=== PATIENT | male | born 2000 | race Caucasian/White ===

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

== ENCOUNTER 2019-07-26 09:24 | Inpatient (IN) | payer OTHER ==
--- NOTE | 2019-07-26 09:36 | ED ---
Psych HPI - General Source: patient, RN notes reviewed Mode of arrival: ambulatory Limitations: no limitations <Manuel Dalton - Last Filed: 07/26/19 12:51> <Gosia Vargas - Last Filed: 07/28/19 00:47> - General Stated Complaint: Mental Health Time Seen by Provider: 07/26/19 09:27 - History of Present Illness Initial Comments: 19-year-old male presents emergency Department with chief complaint of depression, bipolar disorder. Patient states that he was diagnosed earlier sure. Patient states she's been taken his medications but he states he's had steady progression of increased paranoia, depression and recent thoughts of hurting himself. He states today he felt that he would just swerve an icy road and crashed into a tree. Patient states that he knows he is not certain right he states that he needs help and is ready for help at this time. He does smoke one states is his medical marijuana license. (Manuel Dalton) - Related Data Home Medications Medication Instructions Recorded Confirmed Acetaminophen [Tylenol Extra 1,500 mg PO HS PRN 07/26/19 07/26/19 Strength] inFLIXimab [Remicade] 100 mg IVPB Q56D 07/26/19 07/26/19 lamoTRIgine [LaMICtal] 100 mg PO BID 07/26/19 07/26/19 Allergies Allergy/AdvReac Type Severity Reaction Status Date / Time NSAIDS (Non-Steroidal AdvReac Unknown Verified 07/26/19 15:07 Anti-Inflamma Review of Systems ROS Other: All systems not noted in ROS Statement are negative. <Manuel Dalton - Last Filed: 07/26/19 12:51> ROS Other: All systems not noted in ROS Statement are negative. <Gosia Vargas - Last Filed: 07/28/19 00:47> ROS Statement: Those systems with pertinent positive or pertinent negative responses have been documented in the HPI. Past Medical History Past Medical History: Asthma Additional Past Medical History / Comment(s): crohn's, IBS, History of Any Multi-Drug Resistant Organisms: None Reported Past Surgical History: No Surgical Hx Reported Past Anesthesia/Blood Transfusion Reactions: No Reported Reaction Past Psychological History: ADD/ADHD, Bipolar, Depression Smoking Status: Never smoker Past Alcohol Use History: Occasional Past Drug Use History: Marijuana <Manuel Dalton - Last Filed: 07/26/19 12:51> General Exam Limitations: no limitations General appearance: alert, in no apparent distress Head exam: Present: atraumatic, normocephalic, normal inspection Eye exam: Present: normal appearance, PERRL, EOMI. Absent: scleral icterus, conjunctival injection, periorbital swelling ENT exam: Present: normal exam, normal oropharynx, mucous membranes moist Neck exam: Present: normal inspection, full ROM. Absent: tenderness, meningismus, lymphadenopathy Respiratory exam: Present: normal lung sounds bilaterally. Absent: respiratory distress, wheezes, rales, rhonchi, stridor Cardiovascular Exam: Present: regular rate, normal rhythm, normal heart sounds. Absent: systolic murmur, diastolic murmur, rubs, gallop, clicks GI/Abdominal exam: Present: soft, normal bowel sounds. Absent: distended, tenderness, guarding, rebound, rigid Neurological exam: Present: alert, oriented X3 Skin exam: Present: warm, dry, intact, normal color. Absent: rash <Manuel Dalton - Last Filed: 07/26/19 12:51> Course Vital Signs 07/26/19 07/26/19 09:26 13:58 Temperature 98.2 F 97.9 F Pulse Rate 79 67 Respiratory 18 19 Rate Blood Pressure 144/88 134/85 O2 Sat by Pulse 98 97 Oximetry Medical Decision Making <ShaManuel Caicedo - Last Filed: 07/26/19 12:51> - Lab Data Result diagrams: 07/27/19 07:51 07/27/19 07:51 <Gosia Vargas - Last Filed: 07/28/19 00:47> - Medical Decision Making Patient evaluated by EPS patient will be admitted to psychiatric facility (Manuel Dalton) I was available for consultation in the emergency department. The history and physical exam were done by the midlevel provider. I was consulted for this patients care. I reviewed the case with the midlevel provider and based on their presentation of the patient, I agree with the assessment, medical decision making and plan of care as documented. Chart was dictated using [employer] dictation software. Attempts were made to correct any dictation errors however some typographical errors may persist. (Gosia Vargas) - Lab Data Lab Results 07/26/19 Range/Units 09:41 Urine Color Yellow Urine Appearance Clear (Clear) Urine pH 7.0 (5.0-8.0) Ur Specific Jackson 1.021 (1.001-1.035) Urine Protein Negative (Negative) Urine Glucose (UA) Negative (Negative) Urine Ketones Negative (Negative) Urine Blood Negative (Negative) Urine Nitrite Negative (Negative) Urine Bilirubin Negative (Negative) Urine Urobilinogen <2.0 (<2.0) mg/dL Ur Leukocyte Esterase Negative (Negative) Urine Opiates Screen Not Detected (NotDetected) Ur Oxycodone Screen Not Detected (NotDetected) Urine Methadone Screen Not Detected (NotDetected) Ur Propoxyphene Screen Not Detected (NotDetected) Ur Barbiturates Screen Not Detected (NotDetected) U Tricyclic Antidepress Not Detected (NotDetected) Ur Phencyclidine Scrn Not Detected (NotDetected) Ur Amphetamines Screen Not Detected (NotDetected) U Methamphetamines Scrn Not Detected (NotDetected) U Benzodiazepines Scrn Not Detected (NotDetected) Urine Cocaine Screen Not Detected (NotDetected) U Marijuana (THC) Screen Detected H (NotDetected) Disposition Time of Disposition: 12:00 <Manuel Dalton - Last Filed: 07/26/19 12:51> <Gosia Vargas - Last Filed: 07/28/19 00:47> Clinical Impression: Depression, Bipolar disorder Disposition: TRANSFER TO PSYCH HOSP/UNIT Condition: Stable
[2019-07-26 12:30] LABS: Appearance,Urine Clear (Clear); Bilirubin,Urine Negative (Negative); Blood,Urine Negative (Negative); Color,Urine Yellow; Glucose,Urine (UA) Negative (Negative); Ketones,Urine Negative (Negative); Leukocyte Esterase,Urine Negative (Negative); Nitrite,Urine Negative (Negative); Protein,Urine Negative (Negative); Specific Gravity,Urine 1.021 (1.001-1.035); Urobilinogen,Urine <2.0 mg/dL (<2.0)
[2019-07-26 12:42] LABS: Amphetamine Screen,Urine Not Detected (NotDetected); Barbiturate Screen,Urine Not Detected (NotDetected); Benzodiazepines Screen,Urine Not Detected (NotDetected); Cocaine Screen,Urine Not Detected (NotDetected); Methadone Screen, Urine Not Detected (NotDetected); Opiate Screen,Urine Not Detected (NotDetected); Oxycodone Screen, Urine Not Detected (NotDetected); Phencyclidine Screen,Urine Not Detected (NotDetected); Tricyclic Antidepressant,Urine Not Detected (NotDetected); Urn Cannabinoid Scrn Detected (NotDetected)
[2019-07-26] MEDS ORDERED: MAGNESIUM HYDROXIDE 2,400 MG/10 ML CUP PO PRN (14:28)
[2019-07-26] MEDS ORDERED: ZIPRASIDONE 20 MG VIAL IM PRN (14:28)
[2019-07-26] MEDS ORDERED: MAG HYDROX/AL HYDROX/SIMETH 30 ML CUP PO PRN (14:28)
[2019-07-26] MEDS: ACETAMINOPHEN TAB 500 MG TAB PO PRN (21:38)
[2019-07-26] MEDS: LORazepam 1 MG TAB PO PRN (21:38)
[2019-07-27 08:15] LABS: Basophils # (A) 0.1 k/uL (0-0.2); Basophils % (A) 1 %; Eosinophils # (A) 0.2 k/uL (0-0.7); Eosinophils % (A) 4 %; HCT 48.7 % (39.0-53.0); HGB 16.4 gm/dL (13.0-17.5); Lymphocytes # (A) 1.8 k/uL (1.0-4.8); Lymphocytes % (A) 36 %; MCHC 33.7 g/dL (31.0-37.0); MCV 89.1 fL (80.0-100.0); Monocytes # (A) 0.4 k/uL (0-1.0); Monocytes % (A) 8 %; Neutrophils # (A) 2.4 k/uL (1.3-7.7); Neutrophils % (A) 48 %; Platelet Count 254 k/uL (150-450); RBC 5.46 m/uL (4.30-5.90); RDW 12.1 % (11.5-15.5)
[2019-07-27 08:25] LABS: ALT 44 U/L (21-72); AST 28 U/L (17-59); African American GFR (CKD) >90 (>60 ml/min/1.73 sqM); Albumin 4.6 g/dL (3.5-5.0); Alkaline Phosphatase 79 U/L (38-126); Anion Gap 9 mmol/L; Blood Urea Nitrogen 14 mg/dL (9-20); Calcium 9.6 mg/dL (8.4-10.2); Carbon Dioxide 29 mmol/L (22-30); Chloride 105 mmol/L (98-107); Cholesterol 120 mg/dL (<200); Glucose 90 mg/dL (74-99); HDL Cholesterol 39 mg/dL (40-60); LDL Cholesterol,Calculated 63 mg/dL (0-99); Potassium 4.5 mmol/L (3.5-5.1); Sodium 143 mmol/L (137-145); Total Bilirubin 0.7 mg/dL (0.2-1.3); Total Protein 7.5 g/dL (6.3-8.2); Triglycerides 91 mg/dL (<150)
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
[2019-07-27 15:03] VITALS: BMI 35.8
[2019-07-27 17:16] LABS: Hemoglobin A1C 4.7 % (4.0-6.0)
[2019-07-27] MEDS: SERTRALINE 50 MG TAB PO SCH (20:49)
--- NOTE | 2019-07-27 21:07 | P.CONS ---
History of Present Illness - Reason for Consult Consult date: 07/27/19 Medical management Requesting physician: Shaji Mantilla - Chief Complaint Depressed - History of Present Illness Consultation: This is a pleasant 19-year-old patient of Dr. ibarra. Patient's chronic stable medical conditions include asthma, recreational marijuana use, and Crohn's disease. Patient is on IV Remicade. Averages a few bowel movements anywhere from 4-7 today. Patient's current job iin [employer]. Patient decided to come in as he was feeling low started to become more depressed and he thought he should come in before things get much worse. Appetite is okay. Patient also got actually which is a little bit cautious about. No abdominal pain. No fever no chills. Up and about otherwise. Review of systems: GEN.: None EYES: None HEENT: None NECK: None RESPIRATORY: None CARDIOVASCULAR: None GASTROINTESTINAL: [As above GENITOURINARY: None MUSCULOSKELETAL: None LYMPHATICS: None HEMATOLOGICAL: None PSYCHIATRY: [Depressed NEUROLOGICAL: None DERMATOLOGICAL: Acne on the chest and face Past medical history: Asthma, Crohn's disease, Social history Has does marijuana after recently. Alcohol occasionally when he goes out. Was with his mother and her boyfriend. Employed in an [employer] company Family history: Reviewed, noncontributory to presentation Physical examination: VITAL SIGNS: 98.2, 79, 18, 144/88, 98% GENERAL: BMI 35.8, sitting up in a chair comfortable. EYES: Pupils equal. Conjunctiva normal. HEENT: External appearance of nose and ears normal, oral cavity grossly normal. Facial acne NECK: JVD not raised; masses not palpable. HEART: First and second heart sounds are normal; no edema. LUNGS: Respiratory rate normal; clear to auscultation. ABDOMEN: Soft, nontender, liver spleen not palpable, no masses palpable. PSYCH: Alert and oriented x3; mood and affect slightly anxious NEUROLOGICAL: Cranial nerves grossly intact; no facial asymmetry, power and sensation grossly intact. LYMPHATICS: No lymph nodes palpable in the axilla and neck CHEST wall: Anterior chest wall acne INVESTIGATIONS, reviewed in the clinical context: White count 5 hemoglobin 16.4 platelets 254 potassium 4.5 crit 0.85 TSH 0.609 UA negative Urine drug screen positive for marijuana Assessment: -Acne in both the face and the trunk. -Obesity BMI 35.8 -Recreational marijuana use -Bipolar disorder, depressed Plan: Did discuss with the patient. He should follow with a double needle operator lockstitch upon discharge.: To avoid marijuana. Also discussed to exercise and cut back on his calories and lose weight. Follow-up with PCP upon discharge Thank you Dr. Mantilla Past Medical History Past Medical History: Asthma Additional Past Medical History / Comment(s): crohn's, IBS, History of Any Multi-Drug Resistant Organisms: None Reported Past Surgical History: No Surgical Hx Reported Additional Past Surgical History / Comment(s): Colonoscopy Past Anesthesia/Blood Transfusion Reactions: No Reported Reaction Past Psychological History: ADD/ADHD, Anxiety, Bipolar, Depression Smoking Status: Current every day smoker Past Alcohol Use History: Occasional Past Drug Use History: Marijuana Additional Drug Use History / Comment(s): Magic Mushrooms once 4 months ago and once last year Medications and Allergies Home Medications Medication Instructions Recorded Confirmed Type Acetaminophen [Tylenol Extra 1,500 mg PO HS PRN 07/26/19 07/26/19 History Strength] inFLIXimab [Remicade] 100 mg IVPB Q56D 07/26/19 07/26/19 History lamoTRIgine [LaMICtal] 100 mg PO BID 07/26/19 07/26/19 History Allergies Allergy/AdvReac Type Severity Reaction Status Date / Time NSAIDS (Non-Steroidal AdvReac Unknown Verified 07/26/19 15:07 Anti-Inflamma Physical Exam Vitals: Vital Signs Temp Pulse Pulse Resp BP BP Pulse Ox 07/27/19 06:14 97.9 F 68 16 117/58 07/26/19 15:20 97.4 F L 64 20 130/81 98 07/26/19 13:58 97.9 F 67 19 134/85 97 Results CBC & Chem 7: 07/27/19 07:51 07/27/19 07:51 Labs: Abnormal Lab Results - Last 24 Hours (Table) 07/26/19 07/27/19 Range/Units 09:41 07:51 HDL Cholesterol 39 L (40-60) mg/dL U Marijuana (THC) Screen Detected H (NotDetected)
[2019-07-27] MEDS: ACETAMINOPHEN TAB 500 MG TAB PO PRN (22:20)
[2019-07-28] MEDS: ONDANSETRON 4 MG TAB PO PRN (06:42)
--- NOTE | 2019-07-28 09:11 | P.PN ---
Progress Note - Text Interval history: The patient is found in the hallway he follows me to an interview room. He reports that his mood is great. He denies having any side effects from the Zoloft so far. He indicates he was able to sleep last night appetite is stable. He had a pleasant visit from his mother and girlfriend last evening. We discussed his diagnosis in detail he had several relevant questions. He indicates he is attending groups. He reported coping skills he hopes to employ upon discharge. Social work was able to contact the patient's employer to let them know that the patient was in the hospital. Mental status exam: The patient is alert he is pleasant cooperative easily directed in the session. He is dressed in his own clothing hygiene adequate grooming fair. Eye contact is appropriate speech is fluent spontaneous nonpressured. He is reporting no suicidal or homicidal ideation intent or plan. He identifies his mood is "great". Affect is congruent and appears euthymic. He is reporting no auditory or visual hallucinations or specific delusions. He demonstrates no tangential thinking loose associations or flight of ideas. He can be circumstantial at times. Insight and judgment improving. He demonstrates no verbal or physical aggressiveness. He remains oriented to person place and date. Plan: The patient will continue on the Zoloft we will restart the Lamictal 200 mg at bedtime. Social work will be asked to arrange a support meeting. We will discuss his progress during treatment team meeting. We discussed options for his outpatient psychiatric care and he is agreeable. We spent time discussing the need for him to abstain from marijuana and he is agreeable. Vital signs reviewed. He requires continued psychiatric evaluation and treatment. We will consider discharge in the next 1-2 days.
[2019-07-28] MEDS: SERTRALINE 50 MG TAB PO SCH (20:50)
[2019-07-28] MEDS: LORazepam 1 MG TAB PO PRN (20:51)
[2019-07-28] MEDS ORDERED: lamoTRIgine 100 MG TAB PO SCH (21:00)
[2019-07-29 06:37] VITALS: BP 134/76; PULSE 73; RESP 14; TEMP 97.4
[2019-07-29] MEDS: ONDANSETRON 4 MG TAB PO PRN (06:50)
--- NOTE | 2019-07-29 09:50 | P.DS ---
Providers Date of admission: 07/26/19 13:49 Expected date of discharge: 07/29/19 Attending physician: Shaji Mantilla Consults: 07/26/19 14:28 Consult Physician Routine Consulting Provider: Victor Manuel Garcia Consult Reason/Comments: H&P and medical Do you want consulting provider notified?: Yes Primary care physician: Rashi Steel - Discharge Diagnosis(es) (1) Bipolar II disorder, severe, depressed, with anxious distress Current Visit: Yes Status: Acute Priority: High (2) Cannabis use disorder, mild, abuse Current Visit: Yes Status: Acute Priority: Medium Hospital Course: Brief summary of admission note: This patient is a 19-year-old single male who was admitted to the mental health unit through the emergency room with acute suicidal ideation. The patient indicated he had thoughts of driving his vehicle into a stationary object. He had been experiencing intense anxiety culminating in panic attacks. He had been struggling with symptoms of major d epression. Sleep had been poor energy low he had not been attending to his activities of daily living as often. For full details please refer to the psychiatric evaluation dated 07/27/2019. Summary of hospital course: The patient was admitted to the mental health unit voluntarily. We reviewed his presenting symptoms and treatment options. We decided to continue the Lamictal at 200 mg at bedtime we initiated Zoloft 50 mg at bedtime for depressive and anxiety symptoms. He felt the Lamictal was beneficial in terms of a mood stabilizer and it has been controlling episodes of hypomania. He was seen by internal medicine for routine history and physical exam. Social work met with the patient to complete a psychosocial assessment for discharge planning purposes. He demonstrated progressive improvement of symptoms while here. He was able to tolerate his medication. He attended groups and was pleasant and cooperative throughout the stay. The patient's mother came up for a support meeting yesterday he notes were reviewed from social work. The meeting was noted to be productive and the patient appeared to be at baseline function. We discussed abstaining from marijuana and the pat ient's willing to do so at least for a brief period. Mental status exam: The patient is alert male appearing his stated age she is dressed in his own clothing. Hygiene and grooming are good. Speech is fluent spontaneous nonpressured. He reports his mood is great. Affect is euthymic and congruent to reported mood. He denies having any suicidal ideation intent or plan he denies having any homicidal ideation intent or plan. He reports no hopelessness thinking. In fact he describes several future oriented thoughts. He is reporting no auditory or visual hallucinations or any specific delusions. There is no observed evidence of psychosis. He demonstrates no tangential thinking loose associations or flight of ideas. He is not hypomanic or manic at this time. Insight and judgment grossly intact. He remains oriented to person place and date. Impressions 1. Bipolar 2 disorder most recent depressed severe without psychosis, cannabis use disorder 2. Crohn's disease Plan: The patient will be discharged mental health unit today to return home residing with his mother. He will continue on Lamictal 200 mg at bedtime and Zoloft 50 mg at bedtime. He will continue working with his established therapist and he will be set up to follow up with a psychiatrist in [facility]. He is encouraged to abstain from use of marijuana as it may be exacerbating some of his psychiatric and physical symptoms. He does not feel that he needs inpatient chemical dependency treatment to abstain from marijuana. There is no imminent safety risk is appropriate for transition to outpatient care. He is instructed to return to the hospital with any acute safety concerns. Patient Condition at Discharge: Stable Plan - Discharge Summary Discharge Rx Participant: No New Discharge Prescriptions: New lamoTRIgine [LaMICtal] 200 mg PO HS #30 tab Sertraline [Zoloft] 50 mg PO HS #30 tab Continue inFLIXimab [Remicade] 100 mg IVPB Q56D Discontinued lamoTRIgine [LaMICtal] 100 mg PO BID Acetaminophen [Tylenol Extra Strength] 1,500 mg PO HS PRN PRN Reason: Pain Discharge Medication List inFLIXimab [Remicade] 100 mg IVPB Q56D 07/26/19 [History] Sertraline [Zoloft] 50 mg PO HS #30 tab 07/29/19 [Rx] lamoTRIgine [LaMICtal] 200 mg PO HS #30 tab 07/29/19 [Rx] Follow up Appointment(s)/Referral(s): Sara Ray [Other] - 08/02/19 11:00 am (Sara Ray) Rashi Steel MD [Primary Care Provider] - 1-2 days
== END 2019-07-29 13:52 | disposition home or self-care (01) | DRG 885 ==
LOC: EC 09:24 → 3MHU 13:49
PROVIDERS: ADMIT Psychiatry & Neurology Psychiatry; ATTEND Psychiatry & Neurology Psychiatry
DX: F31.81 Bipolar II disorder (principal); R45.851 Suicidal ideations; K50.90 Crohn's disease, unspecified, without complications; F12.10 Cannabis abuse, uncomplicated; F90.9 Attention-deficit hyperactivity disorder, unspecified type; F41.0 Panic disorder [episodic paroxysmal anxiety]; F17.290 Nicotine dependence, other tobacco product, uncomplicated; J45.909 Unspecified asthma, uncomplicated; K58.9 Irritable bowel syndrome, unspecified; E66.9 Obesity, unspecified; Z68.35 Body mass index [BMI] 35.0-35.9, adult; Z79.899 Other long term (current) drug therapy; Z88.6 Allergy status to analgesic agent; Z81.8 Family history of other mental and behavioral disorders
CPT/HCPCS: 80053; 80061; 80306; 81003; 83036; 84443; 85025; 99285

== ENCOUNTER 2020-06-08 13:20 | Inpatient (IN) | payer OTHER ==
[2020-06-08] MEDS ORDERED: SODIUM CHLORIDE 0.9% 500 ML 500 ML IV STA (13:26)
[2020-06-08] MEDS ORDERED: LORazepam 2 MG/ML INJ IM STA (13:26)
[2020-06-08] MEDS ORDERED: LORazepam 2 MG/ML INJ IV STA (13:27)
--- NOTE | 2020-06-08 13:41 | ED ---
Psych HPI - General Chief Complaint: Psychiatric Symptoms Stated Complaint: Mental Health Time Seen by Provider: 06/08/20 13:24 Source: family, police, EMS, RN notes reviewed, old records reviewed Mode of arrival: EMS Limitations: no limitations - History of Present Illness Initial Comments: This is a 19-year-old male poor story refusing question answering patient's brought in from early behavior agitation, did run from police, patient needs to be restrained upon arrival in the hospital MD Complaint: altered mental status, other (Aggressive, acting appropriate) -: hour(s) Associated Psychiatric Symptoms: racing thoughts Quality: constant Improves With: none Worsens With: none Associated Symptoms: denies other symptoms Treatments Prior to Arrival: placed on mental health hold - Related Data Home Medications Medication Instructions Recorded Confirmed inFLIXimab [Remicade] 100 mg IVPB Q56D 07/26/19 06/08/20 Desloratadine 5 mg PO DAILY 06/08/20 06/08/20 Dextroamphetamine/Amphetamine 20 mg PO DAILY 06/08/20 06/08/20 [Adderall Xr] Sertraline [Zoloft] 50 mg PO DAILY 06/08/20 06/08/20 Previous Rx's Medication Instructions Recorded lamoTRIgine [LaMICtal] 200 mg PO HS #30 tab 07/29/19 Allergies Allergy/AdvReac Type Severity Reaction Status Date / Time NSAIDS (Non-Steroidal AdvReac Rash/Hives Verified 06/08/20 16:03 Anti-Inflamma Review of Systems ROS Statement: Those systems with pertinent positive or pertinent negative responses have been documented in the HPI. ROS Other: All systems not noted in ROS Statement are negative. Past Medical History Past Medical History: Asthma Additional Past Medical History / Comment(s): crohn's, IBS, History of Any Multi-Drug Resistant Organisms: None Reported Past Surgical History: No Surgical Hx Reported Additional Past Surgical History / Comment(s): Colonoscopy Past Anesthesia/Blood Transfusion Reactions: No Reported Reaction Past Psychological History: ADD/ADHD, Anxiety, Bipolar, Depression Smoking Status: Vaper Past Alcohol Use History: Occasional Past Drug Use History: Marijuana General Exam Limitations: altered mental status General appearance: alert, in no apparent distress Head exam: Present: atraumatic, normocephalic, normal inspection Eye exam: Present: normal appearance, PERRL, EOMI. Absent: scleral icterus, conjunctival injection, periorbital swelling ENT exam: Present: normal exam, mucous membranes moist Neck exam: Present: normal inspection. Absent: tenderness, meningismus, lymphadenopathy Respiratory exam: Present: normal lung sounds bilaterally. Absent: respiratory distress, wheezes, rales, rhonchi, stridor Cardiovascular Exam: Present: regular rate, normal rhythm, normal heart sounds. Absent: systolic murmur, diastolic murmur, rubs, gallop, clicks GI/Abdominal exam: Present: soft, normal bowel sounds. Absent: distended, tenderness, guarding, rebound, rigid Extremities exam: Present: normal inspection, full ROM, normal capillary refill. Absent: tenderness, pedal edema, joint swelling, calf tenderness Back exam: Present: normal inspection Neurological exam: Present: alert, oriented X3, CN II-XII intact Psychiatric exam: Present: normal affect, normal mood Skin exam: Present: warm, dry, intact, normal color. Absent: rash Course Vital Signs 06/08/20 06/08/20 13:36 18:02 Temperature 98.4 F 98.2 F Pulse Rate 86 106 H Respiratory 16 Rate Blood Pressure 156/90 156/93 O2 Sat by Pulse 98 98 Oximetry - Reevaluation(s) Reevaluation #1: 06/08/20 13:44 Medical records reviewed Reevaluation #2: 06/08/20 18:09 Patient given both chemical and mechanical sedation here in the ER Procedures - Restraint - Face to Face Restraint Occurrence 1 Patient's Immediate Situation: Endangers self safety, Endangers others' safety, Endangers staff safety, Violent behavior Patient's Reaction to the Intervention: Angry, Hostile, Belligerent, Anxious Patient's Medical & Behavioral Condition: Awake, Anxious, Agitated, Manic Need to Continue or Terminate Restraint or Seclusion: Continue Face to Face Eval of Restraint Date: 06/08/20 Face to Face Eval of Restraint Time: 13:25 Medical Decision Making - Medical Decision Making 19 male seen eval by psychiatry, patient having delusions and episcopal thoughts occupying his thought process. Patient be admitted for psychiatric evaluation and treatment - Lab Data Result diagrams: 06/08/20 13:49 06/08/20 13:49 Lab Results 06/08/20 06/08/20 Range/Units 13:49 13:49 WBC 8.5 (4.0-11.0) k/uL RBC 5.35 (4.30-5.90) m/uL Hgb 16.0 (13.0-17.5) gm/dL Hct 45.9 (39.0-53.0) % MCV 85.9 (80.0-100.0) fL MCH 29.8 (25.0-35.0) pg MCHC 34.7 (31.0-37.0) g/dL RDW 11.8 (11.5-15.5) % Plt Count 294 (150-450) k/uL Neutrophils % 67 % Lymphocytes % 21 % Monocytes % 9 % Eosinophils % 0 % Basophils % 1 % Neutrophils # 5.7 (1.3-7.7) k/uL Lymphocytes # 1.8 (1.0-4.8) k/uL Monocytes # 0.7 (0-1.0) k/uL Eosinophils # 0.0 (0-0.7) k/uL Basophils # 0.1 (0-0.2) k/uL Sodium 136 L (137-145) mmol/L Potassium 3.9 (3.5-5.1) mmol/L Chloride 103 (98-107) mmol/L Carbon Dioxide 21 L (22-30) mmol/L Anion Gap 12 mmol/L BUN 14 (9-20) mg/dL Creatinine 0.86 (0.66-1.25) mg/dL Est GFR (CKD-EPI)AfAm >90 (>60 ml/min/1.73 sqM) Est GFR (CKD-EPI)NonAf >90 (>60 ml/min/1.73 sqM) Glucose 113 H (74-99) mg/dL Calcium 9.8 (8.4-10.2) mg/dL Total Bilirubin 0.9 (0.2-1.3) mg/dL AST 27 (17-59) U/L ALT 30 (4-49) U/L Alkaline Phosphatase 81 (38-126) U/L Creatine Kinase 222 H (55-170) U/L Total Protein 7.7 (6.3-8.2) g/dL Albumin 4.8 (3.5-5.0) g/dL Salicylates <1.0 mg/dL Acetaminophen <10.0 ug/mL Serum Alcohol <10 mg/dL Disposition Clinical Impression: Acute psychosis, Bipolar disorder, Depression, Bipolar II disorder, severe, depressed, with anxious distress, Cannabis use disorder, mild, abuse Disposition: TRANSFER TO PSYCH HOSP/UNIT Condition: Fair Is patient prescribed a controlled substance at d/c from ED?: No
[2020-06-08 14:14] LABS: Basophils # (A) 0.1 k/uL (0-0.2); Basophils % (A) 1 %; Eosinophils % (A) 0 %; HCT 45.9 % (39.0-53.0); Lymphocytes # (A) 1.8 k/uL (1.0-4.8); Lymphocytes % (A) 21 %; MCH 29.8 pg (25.0-35.0); MCHC 34.7 g/dL (31.0-37.0); MCV 85.9 fL (80.0-100.0); Mean Platelet Volume 6.3; Monocytes # (A) 0.7 k/uL (0-1.0); Monocytes % (A) 9 %; Neutrophils # (A) 5.7 k/uL (1.3-7.7); Neutrophils % (A) 67 %; Platelet Count 294 k/uL (150-450); RBC 5.35 m/uL (4.30-5.90); RDW 11.8 % (11.5-15.5); WBC 8.5 k/uL (4.0-11.0)
[2020-06-08 14:22] LABS: ALT 30 U/L (4-49); AST 27 U/L (17-59); Acetaminophen <10.0 ug/mL; African American GFR (CKD) >90 (>60 ml/min/1.73 sqM); Albumin 4.8 g/dL (3.5-5.0); Alcohol <10 mg/dL; Alkaline Phosphatase 81 U/L (38-126); Anion Gap 12 mmol/L; Blood Urea Nitrogen 14 mg/dL (9-20); Calcium 9.8 mg/dL (8.4-10.2); Carbon Dioxide 21 mmol/L (22-30); Chloride 103 mmol/L (98-107); Creatine Kinase 222 U/L (55-170); Glucose 113 mg/dL (74-99); Non-African American GFR(CKD) >90 (>60 ml/min/1.73 sqM); Potassium 3.9 mmol/L (3.5-5.1); Salicylate <1.0 mg/dL; Sodium 136 mmol/L (137-145); Total Bilirubin 0.9 mg/dL (0.2-1.3); Total Protein 7.7 g/dL (6.3-8.2)
[2020-06-08] MEDS ORDERED: ACETAMINOPHEN TAB 325 MG TAB PO PRN (17:53)
[2020-06-08] MEDS ORDERED: MAG HYDROX/AL HYDROX/SIMETH 30 ML CUP PO PRN (17:53)
[2020-06-08] MEDS ORDERED: MAGNESIUM HYDROXIDE 2,400 MG/10 ML CUP PO PRN (17:53)
[2020-06-08] MEDS ORDERED: LORazepam 2 MG/ML INJ IM PRN (17:59)
[2020-06-08] MEDS: ZIPRASIDONE 20 MG VIAL IM PRN (18:57)
[2020-06-08] MEDS: lamoTRIgine 100 MG TAB PO SCH (22:19)
[2020-06-09 09:15] LABS: ALT 34 U/L (4-49); AST 27 U/L (17-59); African American GFR (CKD) >90 (>60 ml/min/1.73 sqM); Albumin 4.8 g/dL (3.5-5.0); Alkaline Phosphatase 73 U/L (38-126); Anion Gap 10 mmol/L; Blood Urea Nitrogen 14 mg/dL (9-20); Calcium 9.9 mg/dL (8.4-10.2); Carbon Dioxide 28 mmol/L (22-30); Chloride 105 mmol/L (98-107); Cholesterol 172 mg/dL (<200); Glucose 87 mg/dL (74-99); HDL Cholesterol 49 mg/dL (40-60); LDL Cholesterol,Calculated 109 mg/dL (0-99); Non-African American GFR(CKD) >90 (>60 ml/min/1.73 sqM); Potassium 4.6 mmol/L (3.5-5.1); Sodium 143 mmol/L (137-145); Total Bilirubin 1.2 mg/dL (0.2-1.3); Total Protein 7.7 g/dL (6.3-8.2); Triglycerides 69 mg/dL (<150)
[2020-06-09 09:37] LABS: Basophils # (A) 0.1 k/uL (0-0.2); Basophils % (A) 1 %; Eosinophils # (A) 0.1 k/uL (0-0.7); Eosinophils % (A) 2 %; HCT 49.7 % (39.0-53.0); HGB 17.3 gm/dL (13.0-17.5); Lymphocytes # (A) 2.6 k/uL (1.0-4.8); Lymphocytes % (A) 40 %; MCH 30.5 pg (25.0-35.0); MCHC 34.8 g/dL (31.0-37.0); MCV 87.7 fL (80.0-100.0); Mean Platelet Volume 6.6; Monocytes # (A) 0.6 k/uL (0-1.0); Monocytes % (A) 9 %; Neutrophils # (A) 3.1 k/uL (1.3-7.7); Neutrophils % (A) 47 %; Platelet Count 251 k/uL (150-450); RBC 5.66 m/uL (4.30-5.90); RDW 12.4 % (11.5-15.5); WBC 6.7 k/uL (4.0-11.0)
[2020-06-09] MEDS: SERTRALINE 50 MG TAB PO SCH (09:48)
[2020-06-09] MEDS ORDERED: risperiDONE 0.5 MG TAB PO STA (10:01)
[2020-06-09] MEDS ORDERED: ZIPRASIDONE 20 MG VIAL IM ONE (12:03)
[2020-06-09] MEDS ORDERED: WATER FOR INJECTION, STERILE 10 ML IV ONE (12:03)
[2020-06-09] MEDS: ZIPRASIDONE 20 MG VIAL IM PRN ×2 (12:05→21:32)
[2020-06-09] MEDS: LORazepam 1 MG TAB PO PRN (12:05)
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
[2020-06-09 19:09] LABS: Hemoglobin A1C 4.9 % (4.0-6.0)
[2020-06-09] MEDS: lamoTRIgine 100 MG TAB PO SCH (19:45)
[2020-06-09] MEDS ORDERED: risperiDONE 1 MG TAB PO SCH (21:00)
--- NOTE | 2020-06-10 03:44 | P.PN ---
Progress Note - Text Progress Note Date: 06/10/20 Attempted to the patient in the mental health unit. The patient was sedated after having received Geodon. Will attempt again tomorrow.
[2020-06-10] MEDS: LORazepam 1 MG TAB PO PRN ×2 (06:22→13:06)
[2020-06-10] MEDS: SERTRALINE 50 MG TAB PO SCH (08:20)
--- NOTE | 2020-06-10 10:16 | P.PN ---
Subjective Progress Note Date: 06/10/20 Principal diagnosis: Diagnoses bipolar 1 manic episode Subjective: The patient says that he was psychotic last night and believes that he had Covid and then what was the point of living if you have Covid. After that he said he was able to sleep somewhat denies any restlessness from the risperidone. Objective: The patient is almost too positive which is typical of the euphoria of ross. Going on and on how this is fine in his hospital and when he becomes a psychiatrist himself he will refer people here. Vital signs temperature 97.9 heart rate is 132 respiration 18 blood pressure 163/98 (most of this is probably from the agitation of his ross) Labs: Hematology was normal general chemistry is normal except for a low TSH suggesting he might be slightly hyperthyroid the patient also Lamictal level run which interestingly was 2.1 even though he is on 200mg.So is on the low end of therapeutic for seizure. Course he isn't depressed right he says going into depression he might seriously consider increasing the Lamictal. He swears that he has been taking it on a daily basis and I reviewed with him the rules in terms of forgetfulness and he assured me that he has been taking it regularly. Groups the patient went to 1 group yesterday and [facility] he required verbal prompts and redirection to participate in group and was inconsistently redirectable, that was that 11th clock yesterday. Staff report: Patient mind is racing he doesn't seem to listen when you tell what the process of getting better and discharge issues. He was noted to be tangential circling on episcopalian and on and rebirth. With me he circles on how he will become a psychiatrist and help everybody because he already has the skills. Objective: Good eye contact high-energy quick response times pressured speech and mild flight of ideas and grandiosity Assessment still quite manic tolerated risperidone properly all increase it to 3 mg tonight Objective - Vital Signs Vital signs: Vital Signs Temp 97.9 F 06/10/20 06:10 Pulse 132 H 06/10/20 06:10 Resp 18 06/10/20 06:10 BP 163/98 06/10/20 06:10 Pulse Ox 98 06/08/20 18:46 - Labs CBC & Chem 7: 06/09/20 08:23 06/09/20 08:23
[2020-06-10] MEDS ORDERED: ZIPRASIDONE 20 MG VIAL IM ONE (11:14)
[2020-06-10] MEDS ORDERED: WATER FOR INJECTION, STERILE 10 ML IV ONE (11:14)
[2020-06-10] MEDS: ZIPRASIDONE 20 MG VIAL IM PRN (11:25)
[2020-06-10] MEDS: diphenhydrAMINE 50 MG CAP PO PRN (18:38)
[2020-06-10] MEDS ORDERED: risperiDONE 1 MG TAB PO SCH (21:00)
[2020-06-11] MEDS: LORazepam 1 MG TAB PO PRN ×3 (01:28→16:18)
[2020-06-11] MEDS: diphenhydrAMINE 50 MG CAP PO PRN ×3 (01:28→16:18)
[2020-06-11] MEDS ORDERED: ALBUTEROL NEBULIZED 2.5 MG/3 ML INHALATION PRN (04:30)
--- NOTE | 2020-06-11 04:30 | P.CONS ---
History of Present Illness - Reason for Consult Consult date: 06/11/20 - History of Present Illness Patient is a 19-year-old male with a PMH of Crohn's disease and mild intermittent asthma who presented to the emergency room under police custody for psychosis. The patient was admitted to the mental health unit where he was seen and evaluated. The patient reports that he developed a rash in the area around his chain. He denied any additional complaints. He reports compliance with his Remicade at home and reports seldom using the rescue inhaler for his asthma. He denied chest pain, shortness of fever, chills, cough. Denied abdominal pain, nausea, vomiting, dizziness, or diarrhea. Review of Systems Pertinent positives and negatives as discussed in HPI, a complete review of systems was performed and all other systems are negative. Past Medical History Past Medical History: Asthma Additional Past Medical History / Comment(s): crohn's, IBS, History of Any Multi-Drug Resistant Organisms: None Reported Past Surgical History: No Surgical Hx Reported Additional Past Surgical History / Comment(s): Colonoscopy Past Anesthesia/Blood Transfusion Reactions: No Reported Reaction Past Psychological History: ADD/ADHD, Anxiety, Bipolar, Depression Smoking Status: Vaper Past Alcohol Use History: Occasional Past Drug Use History: Marijuana Medications and Allergies Home Medications Medication Instructions Recorded Confirmed Type inFLIXimab [Remicade] 100 mg IVPB Q56D 07/26/19 06/08/20 History lamoTRIgine [LaMICtal] 200 mg PO HS #30 tab 07/29/19 06/08/20 Rx Desloratadine 5 mg PO DAILY 06/08/20 06/08/20 History Dextroamphetamine/Amphetamine 20 mg PO DAILY 06/08/20 06/08/20 History [Adderall Xr] Sertraline [Zoloft] 50 mg PO DAILY 06/08/20 06/08/20 History Allergies Allergy/AdvReac Type Severity Reaction Status Date / Time NSAIDS (Non-Steroidal AdvReac Rash/Hives Verified 06/08/20 16:03 Anti-Inflamma Physical Exam Vitals: Vital Signs Temp Pulse Resp BP Pulse Ox 06/10/20 18:29 98.9 F 125 H 18 134/98 95 06/10/20 06:10 97.9 F 132 H 18 163/98 Intake and Output 06/10/20 06/10/20 06/11/20 14:59 22:59 06:59 Other: Weight 105.3 kg General: Disheveled male, non toxic, no distress, appears at stated age, normal weight Derm: Raised purpuric rash overlying the neck and front chest, warm, dry Head: atraumatic, normocephalic, symmetric Eyes: EOMI, no lid lag, anicteric sclera, pupils equal round reactive to light ENT: Nose and ears atraumatic, no thrush, no pharyngeal erythema Neck: No thyromegaly, no cervical lymphadenopathy, trachea midline, supple Mouth: no lip lesion, mucus membranes moist Cardiovascular: S1S2 reg, no murmur, positive posterior tibial pulse bilateral, no edema, capillary refill less than 2 seconds Lungs: CTA bilateral, no rhonchi, no rales , no accessory muscle use Abdominal: soft, nontender to palpation, no guarding, no appreciable organom egaly, normal bowel sounds Ext: no gross muscle atrophy, muscle strength 5 out of 5 in all 4 extremities grossly, no contractures, Neuro: CN II-XI grossly intact, light touch intact all 4 extremities, finger to nose within normal limits, Psych: Alert, oriented Results CBC & Chem 7: 06/09/20 08:23 06/09/20 08:23 Assessment and Plan Plan: Mild intermittent asthma -Albuterol when necessary Crohn's disease -Patient receives Remicade as an outpatient every 2 months Low TSH -Obtain T3 and T4 levels Psychosis -As per psychiatry Thank you for allowing us to participate in the care of this patient. We will follow peripherally. Do not hesitate to contact us with questions. Someone can be reached from the [facility] hospitalist group at all hours of the day at [phone].
[2020-06-11] MEDS ORDERED: ALBUTEROL INHALER 60 PUFF/8 GM INHALER (MHU) INHALATION PRN (04:33)
--- NOTE | 2020-06-11 10:12 | P.PN ---
Progress Note - Text Progress Note Date: 06/11/20 I reviewed medical records ,did interview patient and case was discussed in treatment team SLEEP: 4 hours ,trouble falling asleep ,had 1 mg Ativan PRN Did review medical consult:per his note((Assessment and Plan Plan: Mild intermittent asthma -Albuterol when necessary Crohn's disease -Patient receives Remicade as an outpatient every 2 months Low TSH -Obtain T3 and T4 levels)) Interval history:patient was dressed in street clothing was walking in grider and agreed to follow me to office ,disheveled ,stated that he does need Adderrall for his ADD "I am studying Cognitive Neuroscience",grandiose and synagogue delusion ,stated that he has "Genious mind ,I am planning to go to [employer] after community college",compliant with oral medications and denies any side-effect Mental status exam: Patient was wearing his own cloth ,hygiene and grooming are poor ,unkept disheveled ,denies any hallucination,grandiose and synagogue delusion ,hyperverbal ,increased productivity ,loose of association, alert to person and place ,denies any suicidal or homicidal ideation ,very concrete in his thinking insight and judgment are improving ASSESSMENT :Bipolar disorder ,manic with psychotic features PLAN: Patient continues to meet criteria for inpatient psychiatric admission for symptom stabilization and safety ,change Risperdal to Invega .PRN Ativan and Geodon for agitation,waiting for probate court to start long acting injection , ,encourage participation in group,SW on board for post-discharge plan
[2020-06-11 10:13] LABS: T4, Free (Free Thyroxine) 1.87 ng/dL (0.78-2.19)
[2020-06-11] MEDS ORDERED: PALIPERIDONE 6 MG TAB.ER.24 PO SCH (21:00)
[2020-06-12] MEDS: diphenhydrAMINE 50 MG CAP PO PRN ×2 (09:42→20:31)
[2020-06-12] MEDS: LORazepam 1 MG TAB PO PRN (09:42)
--- NOTE | 2020-06-12 10:05 | P.PN ---
Progress Note - Text Progress Note Date: 06/12/20 I reviewed medical records ,did interview patient and case was discussed in treatment team SLEEP: 4 hours and was up and had difficulty falling asleep ,did require PRN Benadryl and Ativan 1m He asked for PRN this morning Ativan and Benadryl TODAY VITALS:Temp:97.9,P:115,R:16,BP:145/76 Interval history:patient was dressed in street clothing and has bedsheet wrapped around,stated "Why I am here ,How I got here ",stated that he used "More than usual amount of Mushroom "prior to his arrival to hospital ,he started using Mushroom in 2018 "I was clean for 6 months then I started back",hyperverbal ,when I asked about other addiction he replied "I HAVE NICOTINE AND WEED MY NICOTINE IS MY GAS AND WEEDS IS MY BRAKE",patient is grandiose ,endorses racing thoughts and "I AM HYPER I WANT TO SLOW DOWN",reports trouble staying asleep and having difficulty to concentrate Mental status exam: Patient was wearing his own cloth ,hygiene and grooming are poor ,unkept disheveled ,denies any hallucination,grandiose and scientology delusion ,hyperverbal ,increased productivity ,loose of association, alert to person and place ,denies any suicidal or homicidal ideation ,very concrete in his thinking insight and judgment are improving ASSESSMENT :Bipolar disorder ,manic with psychotic features PLAN: Patient continues to meet criteria for inpatient psychiatric admission for symptom stabilization and safety ,Increase Invega to 9 mg ,add Lamictal .PRN Ativan and Geodon for agitation,waiting for probate court to start long acting injection , ,encourage participation in group,SW on board for post- discharge plan
[2020-06-12] MEDS: PALIPERIDONE 3 MG TAB.ER.24 PO SCH (20:31)
[2020-06-13] MEDS: LORazepam 1 MG TAB PO PRN ×2 (01:51→08:30)
[2020-06-13] MEDS: diphenhydrAMINE 50 MG CAP PO PRN (03:02)
[2020-06-13] MEDS: LORATADINE 10 MG TAB PO SCH (08:30)
[2020-06-13] MEDS ORDERED: lamoTRIgine 25 MG TAB PO SCH (09:00)
[2020-06-13] MEDS ORDERED: hydrOXYzine HCL 50 MG/ML 1 ML VIAL IM STA (09:19)
[2020-06-13] MEDS ORDERED: hydrOXYzine pamoate 25 MG CAP PO PRN (09:30)
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
[2020-06-13] MEDS: PALIPERIDONE 3 MG TAB.ER.24 PO SCH (20:37)
[2020-06-13] MEDS: BENZTROPINE MESYLATE 0.5 MG TAB PO SCH (20:38)
[2020-06-13] MEDS: OXcarbazepine 150 MG TAB PO SCH (20:38)
[2020-06-14] MEDS: LORATADINE 10 MG TAB PO SCH (08:24)
[2020-06-14] MEDS: OXcarbazepine 150 MG TAB PO SCH ×2 (08:24→20:46)
[2020-06-14] MEDS: BENZTROPINE MESYLATE 0.5 MG TAB PO SCH ×2 (08:24→20:46)
[2020-06-14] MEDS ORDERED: PALIPERIDONE IM 234 MG/1.5 ML SYG IM STA (09:11)
--- NOTE | 2020-06-14 09:11 | P.PN ---
Progress Note - Text Progress Note Date: 06/14/20 I reviewed medical records ,did interview patient and case was discussed in treatment team SLEEP: 5 hours Participating in groups,no agitation or aggressive behavior Had PRN Vistaril this morning and also last night TODAY VITALS: P:113,R:14,BP:184/87 SW NOTE on 06/13((Attended deferral hearing with pt. pt deferred. He presented with an understanding of the consequences of non compliance. Pt states "I love my therapist and psychiatrist, I have no problem at all continuing to see them." Pt also states he has no issues with taking medications as prescribed. Will discuss case further with tx team at morning meeting)) Interval history:patient was dressed in street clothing ,was laying in bed and agreed to follow me to office ,he stated that he has been having hard time to calm down because"My mind is racing ",he talked about his short term goals that are not realistic "Getting 4.0 and going to [employer] to be psychiatrist " Mental status exam: Patient was wearing his own cloth ,hygiene and grooming are poor ,unkept disheveled ,denies any hallucination,no confucianist delusion , ,hyperverbal ,increased productivity ,loose of association,less restless today and was able to sit calmly, alert to person and place ,denies any suicidal or homicidal ideation ,very concrete in his thinking insight and judgment are improving ASSESSMENT :Bipolar disorder ,manic with psychotic features PLAN: Patient continues to meet criteria for inpatient psychiatric admission for symptom stabilization and safety ,d/c oral Invega ,start Invega IM 234 mg today ,continue Trileptal ,cogentin and PRN Vistaril,SW on board for post plan discharge
[2020-06-15] MEDS ORDERED: hydrOXYzine pamoate 25 MG CAP PO PRN (07:50)
[2020-06-15] MEDS: LORATADINE 10 MG TAB PO SCH (08:25)
[2020-06-15] MEDS: BENZTROPINE MESYLATE 0.5 MG TAB PO SCH (08:25)
[2020-06-15] MEDS ORDERED: OXcarbazepine 300 MG TAB PO SCH (09:00)
[2020-06-15 11:36] VITALS: BP 126/75; PULSE 105; RESP 16; TEMP 98.1
--- NOTE | 2020-06-15 20:43 | DS ---
DISCHARGE SUMMARY DATE OF ADMISSION: 06/08/2020 DATE OF DISCHARGE: 06/15/2020 SENIOR DATA WAREHOUSE DEVELOPER: Dr. Blake Rangel for history and physical and medical management. DISCHARGE DIAGNOSES: 1. Bipolar disorder, manic with psychotic features. 2. Substance use disorder, Adderall, mushrooms, cannabis and nicotine. HISTORY AND PHYSICAL EXAMINATION: The patient is a 19-year-old single male who was admitted on an involuntary basis. The patient was very agitated and he did need to be restrained upon arrival at the hospital. He stated that he was supposed to be on Zoloft 50 mg in the morning, Adderall 20 mg in the morning for his ADHD, and Lamictal 200 mg daily. The patient was very shinto, preoccupied, with a lot of grandeur delusions, and he was hyperverbal. He stated that he has been not sleeping for 4 or 5 days, and he did admit that he used a lot of mushrooms prior to his admission here. PAST PSYCHIATRIC HISTORY: He had at least 3 previous psych hospitalizations. Most of them were for severe depression or for mood swings. According to him, he was diagnosed with ADHD and he has been on and off [employer] stimulants. SUBSTANCE ABUSE HISTORY: As I mentioned before, the patient has been using mushrooms for almost 6 to 8 months. He stated that he never misused the Adderall prescribed by his primary care physician for ADHD, but he has been smoking marijuana on a daily basis. However, his urine drug screen when it came back to the ER was negative for Adderall and marijuana. However, we do not test for mushrooms. For social history, please refer to initial evaluation dictated by Dr. Fang. HOSPITAL COURSE: The patient was admitted on an involuntary basis. I did start him on Invega for his shinto and grandiose delusions. He was very hyper. He did need a couple of IM p.r.n. Ativan 2 mg. I started him on Invega 6 mg and gradually titrated it to 9 mg. As he did sign the deferral, I switched it to Invega Sustenna 234 mg. He did receive the injection on 06/14/2020, and another injection 156 is due on 06/20/2020. The patient did agree to try Trileptal as a mood stabilizer, as he was complaining of racing thoughts, being easily distracted and being very restless. We did titrate the Trileptal to 300 mg twice a day. The patient was able to tolerate medication without side effects. However, he was complaining that he has restless feelings at night, so Cogentin was added. I did discontinue the Ativan to avoid any cross addiction, and I started him on Vistaril 50 mg every 6-8 hours p.r.n. for anxiety. I did discuss the plan with the patient and he was counseled to avoid any recreational drugs. I did explain to him how it is affecting his mental status and he did verbalize understanding. At the time of admission his creatine kinase was 222. Most probably this was from the mushrooms. Anyway, we did repeat creatine kinase and it came back normal. His cholesterol is 172, but LDL cholesterol is high at 109. TSH was low at 0.39, but we did order T4 and T3 and they came back normal. According to the assessment of the medical doctor, the patient has Crohn's disease and he is on injection every 2 months for his Crohn's disease. The patient was attending most of the groups. He was hyperverbal but easy to redirect. He did respond to the Invega and Trileptal and his mood was improving throughout his hospitalization. He was still requiring p.r.n. Vistaril to help him to sleep. However, he was much less restless and denied any shinto delusions at the time of discharge. The patient did sign the deferral and he is aware that he is on deferral treatment for 6 months. At the time of the discharge, the patient denied any suicidal or homicidal ideation, denied any auditory or visual hallucinations, denied any current delusional thinking. He was still hyperverbal but very easy to redirect. He did verbalize that he cannot use any mushrooms or any prescription for Adderall. The patient was willing to pursue outpatient treatment, as he is not a danger to himself or any others. DISCHARGE DIAGNOSES: 1. Bipolar disorder, manic, with psychotic features, in partial remission. 2. Polysubstance use disorder; mushrooms, cannabis and [employer] stimulants. DISCHARGE INSTRUCTIONS: 1. The patient already received Invega Sustenna 234 on June 14, so on June 20 he will receive Invega 156 mg. 2. He was given a prescription for Invega 234 mg every 4 weeks. 3. He was given 4 weeks of Trileptal 300 mg twice a day as a mood stabilizer and Cogentin twice a day. 4. Also I did give him Vistaril 50 mg every 6 hours p.r.n. for anxiety. The patient will be discharged today. He is on deferral treatment, and he is aware that he needs to follow up with [facility] and be compliant with his medications as prescribed. Also patient is aware that he needs to abstain completely from any illicit drug use. The patient was counseled about compliance with medications and about their side effects. He was counseled too about all the illicit drug use and the effect on his mental and physical health, and he did verbalize understanding. The patient stated that he does not have any issues about taking his medication as prescribed. He does like his outpatient therapist and he will follow up with them. The patient was instructed to return to the hospital if any symptoms recur. FREDY / PIYUSH: [id number] /
== END 2020-06-15 12:30 | disposition home or self-care (01) | DRG 885 ==
LOC: EC 13:20 → 3MHU 17:47
PROVIDERS: ADMIT Psychiatry & Neurology Psychiatry; ATTEND Psychiatry & Neurology Psychiatry
DX: F31.2 Bipolar disorder, current episode manic severe with psychotic features (principal); K50.90 Crohn's disease, unspecified, without complications; F41.9 Anxiety disorder, unspecified; J45.20 Mild intermittent asthma, uncomplicated; F12.10 Cannabis abuse, uncomplicated; F15.90 Other stimulant use, unspecified, uncomplicated; F19.90 Other psychoactive substance use, unspecified, uncomplicated; F90.9 Attention-deficit hyperactivity disorder, unspecified type; Z79.899 Other long term (current) drug therapy; Z91.19 Patient's noncompliance with other medical treatment and regimen; Z88.6 Allergy status to analgesic agent; Z98.890 Other specified postprocedural states; Z87.01 Personal history of pneumonia (recurrent)
CPT/HCPCS: 36415; 80053; 80061; 80175; 80320; 80329; 82550; 83036; 83520; 84436; 84439; 84443; 84480; 84481; 85025; 93005; 96372; 96374; 99285

== ENCOUNTER → 2024-03-08 | Outpatient (CLI) | payer OTHER ==
[2024-03-08 18:22] LABS: Basophils # (A) 0.03 X 10*3/uL (0.00-0.10); Basophils % (A) 0.8 %; Eosinophils # (A) 0.12 X 10*3/uL (0.04-0.35); Eosinophils % (A) 3.2 %; HCT 41.5 % (39.6-50.0); HGB 13.8 g/dL (13.0-17.0); Lymphocytes # (A) 1.57 X 10*3/uL (0.90-5.00); Lymphocytes % (A) 41.6 %; MCH 27.8 pg (27.0-32.0); MCHC 33.3 g/dL (32.0-37.0); MCV 83.7 FL (80.0-97.0); Mean Platelet Volume 9.6 FL (9.5-12.2); Monocytes # (A) 0.31 X 10*3/uL (0.20-1.00); Monocytes % (A) 8.2 %; NRBC Per 100 WBC 0 X 10*3/uL (0.00-0.01); Neutrophils # (A) 1.73 X 10*3/uL (1.80-7.70); Neutrophils % (A) 45.9 %; Platelet Count 230 X 10*3/uL (140-440); RBC 4.96 X 10*6/uL (4.40-5.60); RDW 13.6 % (11.5-14.5); WBC 3.77 X 10*3/uL (4.50-10.00)
[2024-03-08 18:43] LABS: Erythrocyte Sedimentation Rate 9 mm/Hr (0-15)
[2024-03-08 19:19] LABS: BUN/Creat Ratio 23.17 Ratio (12.00-20.00); Blood Urea Nitrogen 13.9 mg/dL (9.0-27.0); C Reactive Protein <0.30 mg/dL (0.00-0.80); Chloride 106 mmol/L (96-109); Glucose 102 mg/dL (70-110); Potassium 4.6 mmol/L (3.5-5.5); Sodium 141 mmol/L (135-145)
[2024-03-08 19:20] LABS: ALT 42 U/L (10-49); AST 23 U/L (14-35); Albumin 4.6 g/dL (3.8-4.9); Alkaline Phosphatase 79 U/L (41-126); Calcium 9.2 mg/dL (8.7-10.3); Globulin 2.3 g/dL (1.6-3.3); Total Bilirubin <0.2 mg/dL (0.3-1.2); Total Protein 6.9 g/dL (6.2-8.2)
== END | disposition home or self-care (01) ==
LOC: LABWHC1 12:31
PROVIDERS: ATTEND Internal Medicine Gastroenterology
DX: E66.9 Obesity, unspecified (principal); K50.90 Crohn's disease, unspecified, without complications; K60.2 Anal fissure, unspecified; Z72.0 Tobacco use
CPT/HCPCS: 36415; 80053; 85025; 85652; 86140; 86480